=== PATIENT | male | born 1965 | race Caucasian/White ===

== ENCOUNTER 2023-12-23 20:29 | Emergency (ER) | payer OTHER ==
[~2023-12-23] VITALS: Ht 172.7 cm; Wt 75.0 kg
[2023-12-23 20:31] VITALS: O2SAT 99
[2023-12-23 20:59] LABS: BASOPHILS % 0.5 % (0.0-2.0); EOSINOPHILS % 1.1 % (0.0-5.0); HEMATOCRIT. 41.7 % (42.0-52.0); HEMOGLOBIN. 13.3 g/dL (14.0-18.0); LYMPHOCYTES % 19.4 % (20.0-50.0); MEAN CORPUSCULAR HEMOGLOBIN 28.8 pg (28.0-32.0); MEAN CORPUSCULAR VOLUME 90.1 fL (80.0-94.0); MEAN PLATELET VOLUME 10.5 fl (7.4-10.4); MONOCYTES % 8.1 % (2.0-8.0); NEUTROPHILS % 70.9 % (40.0-76.0); PLATELET 188 x1000/uL (130-400); RED BLOOD CELL COUNT 4.62 mill/uL (4.7-6.1); RED CELL DISTRIBUTION WIDTH 15.4 % (11.6-14.6); WHITE BLOOD COUNT 9.1 x1000/uL (4.5-11.0)
[2023-12-23 21:08] LABS: CHLORIDE 107 mEq/L (98-107); POTASSIUM 3.3 mEq/L (3.5-5.1); SODIUM 139 mEq/L (136-145)
[2023-12-23 21:09] LABS: CALCIUM 9.3 mg/dL (8.7-10.4); CARBON DIOXIDE 22 mEq/L (21-32)
[2023-12-23 21:14] LABS: CREATININE 1.1 mg/dL (0.6-1.3); GLUCOSE 89 mg/dL (70-105); UREA NITROGEN BLOOD 9 mg/dL (9-23)
[2023-12-23 21:15] LABS: TROPONIN I HIGH SENSITIVITY 6 ng/L (3.0-53)
[2023-12-23] MEDS: ASPIRIN 325MG TABLET PO ONE (22:30)
[2023-12-23] MEDS: ONDANSETRON HCL 4MG/2ML INJ IV ONE (23:23)
[2023-12-23] MEDS: MORPHINE SULFATE 4 MG/ML INJ (FOR IV/IM USE) IV ONE (23:23)
[2023-12-23 23:47] LABS: TROPONIN I HIGH SENSITIVITY 6 ng/L (3.0-53)
[2023-12-24 00:36] VITALS: BP 161/105; PULSE 75; RESP 17; TEMP 98
[2023-12-24 04:05] VITALS: BP 161/105; PULSE 75; RESP 17
[2023-12-24] MEDS: MORPHINE SULFATE 4 MG/ML INJ (FOR IV/IM USE) IM NR (04:05)
== END 2023-12-24 09:06 | disposition left against medical advice (07) ==
LOC: ER 20:29 → UNDOADMIN 22:48 → 5WST 22:48 → EDBEDREQTM 22:54 → EDBEDREQ 22:54 → ER 12-24 09:06 → UNDODISIN 12-24 09:08
DX: R07.89 Other chest pain (principal); I10 Essential (primary) hypertension
CPT/HCPCS: 99291; 96374; 96375; 80048; 85025; 84484; 36415; 71045; 93005; 96372; J2405; J2270 ×2